=== PATIENT | female | born 1995 | race Caucasian/White ===

== ENCOUNTER 2022-07-21 19:37 | Emergency (ER) | payer MEDICAID, OTHER ==
[~2022-07-21] VITALS: Ht 157.5 cm; Wt 64.9 kg
--- NOTE | 2022-07-21 20:25 | ED Abdominal Pain ---
General Chief Complaint: (<6 weeks) Stated Complaint: FEVER/VOMITING Source of Information: Patient Exam Limitations: No Limitations (SUE DICKERSON APRN) History of Present Illness Date Seen by Provider: Jul 21, 2022 Time Seen by Provider: 20:20 Initial Comments Patient reports that she had a baby via a week ago. On Friday she started to have fever, nausea, and vomiting. Denies abdominal pain. Was in contact with OB and told to take over the counter medications. Is . Denies exposure to COVID that she is aware of. Timing/Duration: 2-3 Days Severity/Quality: Moderate Location: Generalized Abdomen Modifying Factors: Improves With Lying down, Improves With Resting Associated Symptoms: No Back Pain, No Chest Pain, No Diaphoresis; Fever/Chills, Fatigue; No Headache, No Heartburn; Nausea/Vomiting; No Shortness of Air (SUE DICKERSON APRN) Allergies and Home Medications Allergies Coded Allergies: cefaclor (Verified Allergy, Unknown, 07/21/22) Patient Home Medication List Home Medication List Reviewed: Yes (SUE DICKERSON APRN) Ondansetron (Ondansetron Odt) 4 Mg Tab.rapdis, 4 MG PO QID Prescribed by: Sue Dickerson on 07/21/222155 Review of Systems Review of Systems Constitutional: chills, fever Respiratory: No Symptoms Reported Cardiovascular: No Symptoms Reported Gastrointestinal: Denies Abdominal Pain; Diarrhea (once on Friday), Nausea, Vomiting Musculoskeletal: No muscle pain Skin: no symptoms reported (SUE DICKERSON APRN) All Other Systems Reviewed Negative Unless Noted: Yes (SUE DICKERSON APRN) Past Gvfscji-Jbpigk-Ftchmh Hx Patient Social History Tobacco Use?: No Use of E-Cig and/or Vaping dev: No Substance use?: No Alcohol Use?: No Pt feels they are or have been: No (SUE DICKERSON APRN) Immunizations Up To Date Influenza Vaccine Up-to-Date: No; Not Current First/Initial COVID19 Vaccinat: 2020 Second COVID19 Vaccination Kelechi: 2020 COVID19 Vaccine Collection Card Clerk: AttorneyFee (SUE DICKERSON APRN) Past Medical History Surgery/Hospitalization HX: JASMINA, TONSIL, C-SEC X 1 (SUE DICKERSON APRN) Family Medical History Reviewed Nursing Family Hx (SUE DICKERSON APRN) Physical Exam Vital Signs Vital Signs - First Documented 07/21/22 20:08 Temp 36.9 Pulse 104 Resp 16 B/P (MAP) 119/86 (97) Pulse Ox 96 O2 Delivery Room Air (MELIZA,ERIC K DO) Vital Signs Capillary Refill : (SUE DICKERSON APRN) Height/Weight/BMI Height: '" Weight: lbs. oz. kg; BMI Method: General Appearance: WD/WN, no apparent distress (pale) Neck: non-tender, full range of motion, supple Respiratory: chest non-tender, lungs clear, normal breath sounds, no respiratory distress Cardiovascular: regular rate, rhythm, tachycardia Gastrointestinal: non tender, soft, tenderness (upon incisional site, well approximated with steri strips intact, no drainage or erythema) Neurologic/Psychiatric: alert, normal mood/affect, oriented x 3 Skin: normal color, warm/dry (SUE DICKERSON APRN) Progress/Results/Core Measures Results/Orders Lab Results Laboratory Tests Test 07/21/22 20:35 Range/Units White Blood Count 14.3 H 4.3-11.0 10^3/uL Red Blood Count 3.42 L 3.80-5.11 10^6/uL Hemoglobin 10.5 L 11.5-16.0 g/dL Hematocrit 31 L 35-52 % Mean Corpuscular Volume 90 80-99 fL Mean Corpuscular Hemoglobin 31 25-34 pg Mean Corpuscular Hemoglobin Concent 34 32-36 g/dL Red Cell Distribution Width 14.0 10.0-14.5 % Platelet Count 426 H 130-400 10^3/uL Mean Platelet Volume 9.0 9.0-12.2 fL Immature Granulocyte % (Auto) 2 % Neutrophils (%) (Auto) 80 H 42-75 % Lymphocytes (%) (Auto) 11 L 12-44 % Monocytes (%) (Auto) 7 0-12 % Eosinophils (%) (Auto) 1 0-10 % Basophils (%) (Auto) 0 0-10 % Neutrophils # (Auto) 11.5 H 1.8-7.8 10^3/uL Lymphocytes # (Auto) 1.5 1.0-4.0 10^3/uL Monocytes # (Auto) 0.9 0.0-1.0 10^3/uL Eosinophils # (Auto) 0.1 0.0-0.3 10^3/uL Basophils # (Auto) 0.0 0.0-0.1 10^3/uL Immature Granulocyte # (Auto) 0.2 H 0.0-0.1 10^3/uL Neutrophils % (Manual) 81 % Lymphocytes % (Manual) 16 % Monocytes % (Manual) 3 % Blood Morphology Comment NORMAL Sodium Level 140 135-145 MMOL/L Potassium Level 3.9 3.6-5.0 MMOL/L Chloride Level 109 H 98-107 MMOL/L Carbon Dioxide Level 19 L 21-32 MMOL/L Anion Gap 12 5-14 MMOL/L Blood Urea Nitrogen 8 7-18 MG/DL Creatinine 0.71 0.60-1.30 MG/DL Estimat Glomerular Filtration Rate 118 BUN/Creatinine Ratio 11 Glucose Level 81 70-105 MG/DL Calcium Level 8.9 8.5-10.1 MG/DL Corrected Calcium 9.5 8.5-10.1 MG/DL Total Bilirubin 0.3 0.1-1.0 MG/DL Aspartate Amino Transf (AST/SGOT) 22 5-34 U/L Alanine Aminotransferase (ALT/SGPT) 64 H 0-55 U/L Alkaline Phosphatase 262 H 40-136 U/L Total Protein 6.4 6.4-8.2 GM/DL Albumin 3.3 3.2-4.5 GM/DL Lipase 6 L 8-78 U/L (MELIZA,ERIC K DO) Medications Given in ED Current Medications Medications Dose Ordered Sig/La Route Start Time Stop Time Status Last Admin Dose Admin Ondansetron HCl 4 mg ONCE ONCE IVP 07/21/22 20:30 07/21/22 20:31 DC 07/21/22 20:39 4 MG Ondansetron HCl 4 mg ONCE ONCE PO 07/21/22 22:00 07/21/22 22:01 DC 07/21/22 22:19 4 MG (MELIZA,ERIC K DO) Vital Signs/I&O 07/21/22 07/21/22 20:08 22:24 Temp 36.9 Pulse 104 89 Resp 16 16 B/P (MAP) 119/86 (97) 122/79 Pulse Ox 96 98 O2 Delivery Room Air Room Air (ERIC HAIDER DO) Progress Progress Note : Time: 21:52 Progress Note Discussed results of labs with patient. She reports that her WBC count was elevated around 13.4 when she was admitted to the hospital for the . No history of liver issues. Is not having RUQ pain and abdominal pain other the occasional incision pain. Home treatment discussed with patient along with candi conde to return to the ER. Instructed to have her liver enzymes rechecked at her follow up next week. (SUE DICKERSON APRN) Departure Impression Primary Impression: Viral syndrome Disposition: HOME, SELF-CARE Condition: Stable Departure-Patient Inst. Decision time for Depature: 21:54 (SUE DICKERSON APRN) Referrals: NO,LOCAL PHYSICIAN (PCP/Family) Primary Care Physician Patient Instructions: Viral Syndrome (DC) Add. Discharge Instructions: 1. Home and rest. 2. Push fluids. 3. Alternate Tylenol/Ibuprofen as needed for pain or fever. 4. Follow up with PCP as needed. 5. Keep appointment with OB as scheduled. Have your liver enzymes rechecked at your follow up visit. 6. Zofran as needed for nausea. 7. [place] diet and advance as tolerated. 8. Return here if worse or concerns. All discharge instructions reviewed with patient and/or family. Voiced understanding. Scripts Ondansetron (Ondansetron Odt) 4 Mg Tab.rapdis 4 MG PO QID for Nausea, #20 TAB Prov: SUE DICKERSON APRN 07/21/22 ATTENDING PHYSICIAN NOTE: I WAS PHYSICALLY PRESENT ER PHYSICAN, BUT I WAS NOT INVOLVED IN ANY DECISION MAKING OR ANY CARE OF THIS PATIENT, AND I AM NOT COLLABORATING PHYSICIAN. (ERIC HAIDER DO) SUE DICKERSON APRN Jul 21, 2022 20:25 ERIC HAIDER DO Jul 22, 2022 03:34
[2022-07-21] MEDS ORDERED: ONDANSETRON 4 MG/2 ML (SDV) Z0FRAN IVP ONE (20:30)
[2022-07-21] MEDS ORDERED: NS IV 1000 ML 1,000 ML IV SCH (20:30)
[2022-07-21 20:57] LABS: BASOPHILS % (AUTO) 0 % (0-10); EOSINOPHILS # (AUTO) 0.1 10^3/uL (0.0-0.3); EOSINOPHILS % (AUTO) 1 % (0-10); HEMATOCRIT 31 % (35-52); HEMOGLOBIN 10.5 g/dL (11.5-16.0); LYMPHOCYTES # (AUTO) 1.5 10^3/uL (1.0-4.0); LYMPHOCYTES % (AUTO) 11 % (12-44); MEAN CORPUSCULAR HEMOGLOBIN 31 pg (25-34); MEAN CORPUSCULAR HGB CONC 34 g/dL (32-36); MEAN CORPUSCULAR VOLUME 90 fL (80-99); MONOCYTES # (AUTO) 0.9 10^3/uL (0.0-1.0); MONOCYTES % (AUTO) 7 % (0-12); NEUTROPHILS # (AUTO) 11.5 10^3/uL (1.8-7.8); NEUTROPHILS % (AUTO) 80 % (42-75); PLATELET COUNT 426 10^3/uL (130-400); WHITE BLOOD COUNT 14.3 10^3/uL (4.3-11.0)
[2022-07-21 21:19] LABS: ALBUMIN 3.3 GM/DL (3.2-4.5); BILIRUBIN,TOTAL 0.3 MG/DL (0.1-1.0); CALCIUM 8.9 MG/DL (8.5-10.1); CREATININE SERUM 0.71 MG/DL (0.60-1.30); POTASSIUM 3.9 MMOL/L (3.6-5.0); TOTAL PROTEIN 6.4 GM/DL (6.4-8.2)
[2022-07-21] MEDS ORDERED: ONDA4TAB11 PO (21:56)
[2022-07-21 21:59] LABS: LYMPHOCYTES % (MANUAL) 16 %; MONOCYTES % (MANUAL) 3 %; NEUTROPHILS % (MANUAL) 81 %
[2022-07-21 22:00] LABS: RBC MORPH NORMAL
[2022-07-21] MEDS ORDERED: ONDANSETRON 4 MG (ZOFRAN) ORAL DISSOLVE TAB PO ONE (22:00)
[2022-07-21 22:24] VITALS: BP 122/79
== END 2022-07-21 22:25 | disposition home or self-care (01) ==
LOC: ER 19:40
DX: B34.9 Viral infection, unspecified (principal)
CPT/HCPCS: 36415; 80053; 83690; 85007; 85027